=== PATIENT | female | born 1945 | race Caucasian/White ===

== ENCOUNTER 2017-06-29 22:43 | Emergency (ER) | payer OTHER ==
[~2017-06-29] VITALS: Ht 165.1 cm; Wt 56.7 kg
[2017-06-29 22:55] VITALS: BP_SYST 101
[2017-06-29 23:27] LABS: BILIRUBIN,URINE NEGATIVE (NEGATIVE); BLOOD, URINE NEGATIVE (NEGATIVE); CLARITY/URINE CLEAR (CLEAR); COLOR,URINE YELLOW (YELLOW); GLUCOSE,URINE NEGATIVE (NEGATIVE); KETONES,URINE NEGATIVE (NEGATIVE); LEUKOCYTE ESTERASE ,URINE TRACE (NEGATIVE); NITRITE, URINE NEGATIVE (NEGATIVE); PH,URINE 5.5 (5.0-8.0); PROTEIN URINE NEGATIVE (NEGATIVE); UROBILINOGEN,URINE 0.2 (0.2-1.0)
[2017-06-29 23:34] LABS: BACTERIA,URINE FEW /HPF (None Seen); RBC,URINE 0-3 /HPF (0-3)
[2017-06-30 00:23] VITALS: BP_SYST 106
== END 2017-06-30 00:23 | disposition home or self-care (01) ==
LOC: SED 22:43
DX: M62.830 Muscle spasm of back (principal); Z88.0 Allergy status to penicillin
CPT/HCPCS: 81000-TC; 87086; 99284

== ENCOUNTER 2017-12-07 17:27 | Emergency (ER) | payer OTHER ==
[~2017-12-07] VITALS: Ht 162.6 cm; Wt 56.7 kg
[2017-12-07 17:30] VITALS: BP_SYST 152
[2017-12-07] MEDS ORDERED: MAG HYDROX/AL HYDROX/SIMETH 30 ML, BELLADONNA ALKALOIDS/PHENOBARB 10 ML, LIDOCAINE VISC... PO ONE ×3 (18:00)
== END 2017-12-07 18:38 | disposition home or self-care (01) ==
LOC: SED 17:27
DX: R09.89 Other specified symptoms and signs involving the circulatory and respiratory systems (principal); Z88.0 Allergy status to penicillin
CPT/HCPCS: 71045; 99283; J2001

== ENCOUNTER 2020-06-26 13:20 | Emergency (ER) | payer OTHER ==
[2020-06-26 13:31] VITALS: BP_SYST 130
[2020-06-26] MEDS ORDERED: LORazepam 1 MG TABLET PO ONE (14:00)
[2020-06-26 14:14] LABS: BASOPHILS % (AUTO) 0.2 % (0.0-2.0); EOSINOPHILS % (AUTO) 0.2 % (0.0-4.0); HEMATOCRIT 41.6 % (36-48); HEMOGLOBIN 14.1 g/dL (12.0-16.0); LYMPHOCYTES # (AUTO) 0.6 K/uL (1.0-5.5); LYMPHOCYTES % (AUTO) 8.3 % (20.5-51.5); MEAN CORPUSCULAR HEMOGLOBIN 38 pg (27-31); MEAN CORPUSCULAR HGB CONC 34 % (32-36); MEAN CORPUSCULAR VOLUME 113 fL (79.0-98.0); MONOCYTES # (AUTO) 0.4 K/uL (0.0-1.0); MONOCYTES % (AUTO) 5.9 % (1.7-9.3); NEUTROPHILS # (AUTO) 6.5 K/uL (1.8-7.7); NEUTROPHILS % (AUTO) 85.4 % (40.0-70.0); PLATELET COUNT (AUTO) 101 K/uL (130-430); RED BLOOD CELL COUNT(AUTO) 3.68 MIL/uL (4.2-6.2); RED CELL DISTRIBUTION WIDTH 14.1 % (9.0-15.0); WHITE BLOOD COUNT (AUTO) 7.6 K/uL (4.8-10.8)
[2020-06-26 14:27] LABS: ANION GAP 12 (5-15); CHLORIDE 99 mmol/L (98-107); CREATININE 0.76 mg/dL (0.55-1.30); GLUCOSE 109 mg/dL (70-99); POTASSIUM 4.2 mmol/L (3.5-5.1); SODIUM SERUM 138 mmol/L (136-145); UREA NITROGEN, BLOOD 6 mg/dL (8-21)
[2020-06-26 14:33] LABS: ALANINE AMINOTRANSFERASE 60 U/L (12-78); ALBUMIN 3.6 g/dL (3.4-4.8); ASPARTATE AMINOTRANSFERASE 114 U/L (10-37)
[2020-06-26 15:25] VITALS: BP_SYST 130
== END 2020-06-26 15:29 | disposition home or self-care (01) ==
LOC: SED 13:20
DX: R20.2 Paresthesia of skin (principal); Z87.440 Personal history of urinary (tract) infections; Z88.0 Allergy status to penicillin
CPT/HCPCS: 36415; 80053; 82550-TC; 83880; 84484; 85025; 93005; 99283

== ENCOUNTER 2021-02-15 21:57 | Emergency (ER) | payer OTHER ==
[~2021-02-15] VITALS: Ht 165.1 cm; Wt 52.2 kg
[2021-02-15 22:00] VITALS: BP_SYST 149
--- NOTE | 2021-02-15 22:57 | NUR ---
Patient to ER bed 3 to gown for evaluation. Side rails up. Report given to Matthew COELHO.
--- NOTE | 2021-02-15 23:05 | NUR ---
Pt walked in from home c/o sore throat after vomiting today. Pt reports feeling constipated so she self medicated with prune juice. She reports 1 episode of diarrhea and vomiting after. Pt is concerned she won't be able to sleep with her cough. Denies vomiting blood or coughing up blood, no SOB, no CP, no abd pain.
--- NOTE | 2021-02-15 23:45 | NUR ---
Dr. Rey at bedside
[2021-02-16] MEDS ORDERED: MAG HYDROX/AL HYDROX/SIMETH 30 ML, DICYCLOMINE HCL 20 MG, LIDOCAINE VISCOUS 2% 15ML (PO... PO ONE ×3
[2021-02-16] MEDS ORDERED: ONDANSETRON 4 MG ODT TAB PO ONE
[2021-02-16] MEDS ORDERED: PRO40 PO (00:04)
[2021-02-16] MEDS ORDERED: MAG-AL HYDROX/SIMETH 30 ML UDC ONE (00:08)
[2021-02-16] MEDS ORDERED: LIDOCAINE VISCOUS 2%, 15 ML UDC ONE (00:08)
[2021-02-16 00:30] VITALS: BP_SYST 149
--- NOTE | 2021-02-16 00:30 | NUR ---
Patient given written and verbal discharge instructions and verbalizes understanding. ER MD discussed with patient the results and treatment provided. Patient in stable condition. ID arm band removed. Rx of PROTONIX given. Patient educated on pain management and to follow up with PMD. Pain Scale 1/10. Opportunity for questions provided and answered. Medication side effect fact sheet provided.
== END 2021-02-16 00:30 | disposition home or self-care (01) ==
LOC: SED 21:57
DX: J02.9 Acute pharyngitis, unspecified (principal); J04.0 Acute laryngitis; Z88.0 Allergy status to penicillin
CPT/HCPCS: 99283; J2001; Q0162